=== PATIENT | male | born 1985 | race Caucasian/White ===

== ENCOUNTER 2023-09-30 13:33 | Emergency (ER) | payer OTHER ==
[2023-09-30] MEDS ORDERED: Lidocaine 1%/Epinephrine 1:100K 10 ML VIAL ONE (13:56)
== END 2023-09-30 14:18 | disposition home or self-care (01) ==
LOC: BURERS 13:33
DX: S01.01XA Laceration without foreign body of scalp, initial encounter (principal); W22.8XXA Striking against or struck by other objects, initial encounter; Y93.89 Activity, other specified
CPT/HCPCS: 12001; 99282